=== PATIENT | female | born 1940 | race Caucasian/White ===

== ENCOUNTER → 2017-06-21 | Outpatient (CLI) | payer MEDICARE, OTHER ==
[~2017-06-21] MED LIST: ADALAT CC30 MG; ALDACTONE25 MG PO; AMARYL2 MG; ASPIR 8181 MG; ATORVASTATIN CA40 MG; BACTRIM DS TAB1 EACH PO; COREG6.25 MG; HYDROCHLOROTHIA25 M2; HYDROXYZINE HCL25 M1; IMDUR 30 MG TAB30 M1; KEFLEX500 MG PO; LANTUS100 UNIT/M; METFORMIN HCL500 MG; MOBIC7.5 MG PO; NORCO 5-325 TA1 EACH PO; ROBAXIN 750 MG750 M1 PO
== END ==
LOC: M.ULTRA 09:16
DX: I12.9 Hypertensive chronic kidney disease with stage 1 through stage 4 chronic kidney disease, or unspecified chronic kidney disease (principal); N18.3 Chronic kidney disease, stage 3 (moderate)

== ENCOUNTER → 2018-02-18 | Outpatient (CLI) | payer MEDICARE, OTHER ==
[2018-02-18 07:43] LABS: POTASSIUM 3.5 mmol/L (3.5-5.1)
== END ==
LOC: M.LAB 05:46
PROVIDERS: Anesthesiology
DX: Z01.812 Encounter for preprocedural laboratory examination (principal); E11.9 Type 2 diabetes mellitus without complications

== ENCOUNTER → 2018-07-25 | Outpatient (CLI) | payer MEDICARE, OTHER ==
[~2018-07-25] MED LIST changes: +COZAAR 25 MG TA25 M1 PO; +VITAMIN B-12500 MCG PO; +VITAMIN D3400 UNIT PO
[2018-07-25 09:48] VITALS: BP 175/66
--- NOTE | 2018-07-25 10:32 | NUR ---
ARRIVED TO INFUSION VIA WHEELCHAIR. TRANSFERED SELF TO RECLINER. HISTORY AND ALLERGY REVIEWED. MEDICATION AND LAB PROCESS REVIEWED. VOICED UNDERSTANDING. LABB DRAWN AND HGB NOTED AT 10.0 PER STANDING ORDER 8,000 UNITS PROCRIT INJECTED SQ TO BACK OF LEFT UPPER ARM. TOLERATED WELL. DISCHARGE REVIEWED. MARYLU QUESTIONS OR NEEDS AT [facility]GE.
== END ==
LOC: M.INFUS 09:30
DX: N18.4 Chronic kidney disease, stage 4 (severe) (principal); D63.1 Anemia in chronic kidney disease

== ENCOUNTER → 2018-08-08 | Outpatient (CLI) | payer MEDICARE, OTHER ==
[2018-08-08 09:26] VITALS: BP 146/57
--- NOTE | 2018-08-08 09:43 | NUR ---
ARRIVED PER WHEEL CHAIR. TRANSFERES SELF TO RECLINER WITH EASE. DENIES ADVERSE REACTION TO PRIOR INJECTION OF SAME. LAST LAB REVIEWED AND NEW LAB NOT NEEDED TODAY. PROCRIT INJECTION COMPLETED PER STANDING ORDER. TOLERATED WELL. DENIES QUESTIONS OR NEEDS AT DISCHARGE.
== END ==
LOC: M.INFUS 05:02
DX: N18.4 Chronic kidney disease, stage 4 (severe) (principal); D63.1 Anemia in chronic kidney disease

== ENCOUNTER → 2018-08-22 | Outpatient (CLI) | payer MEDICARE, OTHER ==
[2018-08-22 09:35] VITALS: BP 132/75
== END ==
LOC: M.INFUS 04:48
DX: N18.4 Chronic kidney disease, stage 4 (severe) (principal); D63.1 Anemia in chronic kidney disease

== ENCOUNTER → 2018-08-26 | Outpatient (CLI) | payer MEDICARE, OTHER | LOC: M.RAD 15:46 | DX: J98.11 Atelectasis (principal); R91.8 Other nonspecific abnormal finding of lung field; R06.2 Wheezing ==

== ENCOUNTER → 2018-09-05 | Outpatient (CLI) | payer MEDICARE, OTHER ==
[2018-09-05 09:28] VITALS: BP 162/67
== END ==
LOC: M.INFUS 05:02
DX: N18.4 Chronic kidney disease, stage 4 (severe) (principal); D63.1 Anemia in chronic kidney disease

== ENCOUNTER → 2018-09-20 | Outpatient (CLI) | payer MEDICARE, OTHER ==
[2018-09-20 09:40] VITALS: BP 132/80
== END ==
LOC: M.INFUS 09-19 09:30
DX: N18.4 Chronic kidney disease, stage 4 (severe) (principal); D63.1 Anemia in chronic kidney disease

== ENCOUNTER → 2018-09-23 | Outpatient (CLI) | payer MEDICARE, OTHER | LOC: M.RAD 09:13 | DX: J84.9 Interstitial pulmonary disease, unspecified (principal) ==

== ENCOUNTER → 2018-10-03 | Outpatient (CLI) | payer MEDICARE, OTHER ==
[2018-10-03 09:34] VITALS: BP 165/73
== END ==
LOC: M.INFUS 09:00
DX: N18.4 Chronic kidney disease, stage 4 (severe) (principal); D63.1 Anemia in chronic kidney disease

== ENCOUNTER → 2018-10-17 | Outpatient (CLI) | payer MEDICARE, OTHER ==
[2018-10-17 09:35] VITALS: BP 126/72
--- NOTE | 2018-10-17 10:19 | NUR ---
PATIENT ARRIVED AMBULATORY WITH 4 PRONG CANE. MONTHLY HgB DRAWN= 11.2. PROCRIT HELD PER ORDER. PATIENT DISCHARGED TO HOME WITH NO COMPLAINTS OR DIFFICULTIES REPORTED OR OBSERVED.
== END ==
LOC: M.ULTRA 05:14 → M.INFUS 05:14 → M.ULTRA 09:00
DX: N18.4 Chronic kidney disease, stage 4 (severe) (principal); D63.1 Anemia in chronic kidney disease

== ENCOUNTER → 2018-10-31 | Outpatient (CLI) | payer MEDICARE, OTHER ==
[2018-10-31 09:25] VITALS: BP 139/61
--- NOTE | 2018-10-31 09:46 | NUR ---
0923:PT. ARRIVED AND MADE COMFORTABLE IN RECLINER. 0940:LAB DRAWN UPON ARRIVAL BY Penny COTA RN. 0946:HGB 11.1--NO PROCRIT NEEDED TODAY. PT. WILL RETURN IN 2 WEEKS. LEFT AMBULATORY IN STABLE CONDITION.
== END ==
LOC: M.INFUS 05:10
DX: N18.4 Chronic kidney disease, stage 4 (severe) (principal); D63.1 Anemia in chronic kidney disease

== ENCOUNTER → 2018-11-28 | Outpatient (CLI) | payer MEDICARE, OTHER ==
[2018-11-28 08:37] VITALS: BP 155/62
--- NOTE | 2018-11-28 09:24 | NUR ---
ARRIVED AMBULATORY MADE SELF COMFORTABLE IN RECLINER. LAB DRAWN. RESULTS EVALUATED AND HGB NOTED TO BE 10.9 PER STANDING ORDER AND PT REQUEST INJECTION HELD. PT STATED SHE FEELS GOOD AND DOES NOTE NEED INJECTION. PT TO RETURN IN 2 WEEKS FOR LAB DRAW.
== END ==
LOC: M.INFUS 05:14
DX: N18.4 Chronic kidney disease, stage 4 (severe) (principal); D63.1 Anemia in chronic kidney disease